=== PATIENT | female | born 1950 | race Caucasian/White ===

== ENCOUNTER → 2020-04-27 | Outpatient (CLI) | payer MEDICARE ==
[~2020-04-27] MED LIST: ASPIRIN EC325 MG PO; B-122500 MCG SL; CELEBREX 200MG200 MG PO; CLARITIN10 M2 PO; LISINOPRIL20 MG PO; OXYCODON-ACETA1 EAC1 PO; PRAVASTATIN SOD20 MG PO; TYLENOL EXTRA500 MG PO; VITAMIN D3125 MCG PO
== END ==
LOC: RAD 10:31
DX: M25.561 Pain in right knee (principal); M25.562 Pain in left knee; M17.0 Bilateral primary osteoarthritis of knee
CPT/HCPCS: 73560

== ENCOUNTER → 2020-08-04 | Outpatient (CLI) | payer MEDICARE ==
[2020-08-04 10:35] LABS: HEMOGLOBIN 12.1 gm/dl (12.3-15.3); RED BLOOD COUNT 3.94 M/UL (4.00-5.10); WHITE BLOOD COUNT 4.6 K/UL (4.5-11.0)
[2020-08-04 10:45] LABS: BUN/CREATININE RATIO 28 (0-10)
== END ==
LOC: OPSV2 09:55 → EDSTATUS 10:00
PROVIDERS: Orthopaedic Surgery
DX: Z01.818 Encounter for other preprocedural examination (principal); M17.11 Unilateral primary osteoarthritis, right knee
CPT/HCPCS: 36415; 71046; 80048; 81001; 85025; 87081; 93005

== ENCOUNTER → 2020-08-15 | Outpatient (CLI) | payer MEDICARE ==
[2020-08-15 12:06] LABS: BUN/CREATININE RATIO 31 (0-10)
== END ==
LOC: LAB 10:50
PROVIDERS: Orthopaedic Surgery
DX: Z01.812 Encounter for preprocedural laboratory examination (principal)
CPT/HCPCS: 36415; 80048; 86850; 86900; 86901

== ENCOUNTER 2020-08-16 07:10 | Day surgery (SDC) | payer MEDICARE ==
[~2020-08-16] VITALS: Ht 160 cm; Wt 73.5 kg
[~2020-08-16 07:10] MED LIST changes: -ASPIRIN EC325 MG PO; -OXYCODON-ACETA1 EAC1 PO
[2020-08-16] MEDS ORDERED: OXYCODON-ACETA1 EAC1 PO (14:32)
[2020-08-16] MEDS ORDERED: ASPIRIN EC325 MG PO (14:32)
[2020-08-17 03:34] LABS: RED BLOOD COUNT 3.57 M/UL (4.00-5.10); WHITE BLOOD COUNT 9.3 K/UL (4.5-11.0)
[2020-08-17 03:55] LABS: BUN/CREATININE RATIO 32 (0-10)
[2020-08-18 04:31] LABS: HEMOGLOBIN 9.6 gm/dl (12.3-15.3); RED BLOOD COUNT 3.1 M/UL (4.00-5.10); WHITE BLOOD COUNT 11.2 K/UL (4.5-11.0)
[2020-08-18 04:48] LABS: BUN/CREATININE RATIO 22 (0-10)
== END 2020-08-18 16:14 | disposition home health service (06) ==
LOC: OR 07:10 → EDSTATUS 14:15 → M/S 17:47 → OR 08-18 16:14
PROVIDERS: Orthopaedic Surgery
DX: M17.11 Unilateral primary osteoarthritis, right knee (principal); M21.061 Valgus deformity, not elsewhere classified, right knee; I10 Essential (primary) hypertension; E78.5 Hyperlipidemia, unspecified; M81.0 Age-related osteoporosis without current pathological fracture; Z90.710 Acquired absence of both cervix and uterus; F32.9 Major depressive disorder, single episode, unspecified
CPT/HCPCS: 36415; 73560; 80048; 85027; 97116; 97116-GP-CQ; 97162; 97166; 97530; 97530-GP-CQ; 97535; C1776; J0690; J1100; J1170; J1885; J2405; J2704; J2795; J3010; J3370; J7120

== ENCOUNTER → 2020-12-16 | Outpatient (CLI) | payer MEDICARE ==
[~2020-12-16] MED LIST changes: +ASPIRIN EC325 MG PO; +OXYCODON-ACETA1 EAC1 PO
== END ==
LOC: RAD 11:59
DX: M25.512 Pain in left shoulder (principal); M19.012 Primary osteoarthritis, left shoulder
CPT/HCPCS: 73030